=== PATIENT | female | born 1980 | race Two or more races ===

== ENCOUNTER 2024-02-04 05:31 | Emergency (ER) | payer MEDICAID ==
[~2024-02-04] VITALS: Ht 157.5 cm; Wt 112.9 kg
[2024-02-04 06:00] VITALS: BP 142/81; PULSE 70; RESP 16; TEMP 98.8
[2024-02-04 07:25] VITALS: O2SAT 98
[2024-02-04] MEDS: SUMAtriptan SUCCINATE 6 MG/0.5 ML VL SC ONE (07:25)
[2024-02-04] MEDS: ONDANSETRON ODT 4 MG TAB PO ONE (07:25)
[2024-02-04] MEDS ORDERED: SUMA50TA2 PO (07:32)
[2024-02-04] MEDS ORDERED: ZOFR4T PO (07:32)
== END 2024-02-04 08:03 | disposition home or self-care (01) ==
LOC: ER 05:31
DX: G43.009 Migraine without aura, not intractable, without status migrainosus (principal)
CPT/HCPCS: 70450; 96372; 99285; J3030; Q0162